=== PATIENT | male | born 1940 | race Caucasian/White ===

== ENCOUNTER 2024-12-15 09:27 | Outpatient (CLI) | payer MEDICARE, BC | END 2024-12-15 09:28 | disposition home or self-care (01) | LOC: MADRAD 09:27 | PROVIDERS: ATTEND Nurse Practitioner Primary Care | DX: M25.562 Pain in left knee (principal) ==

== ENCOUNTER 2024-12-28 07:59 | Outpatient (CLI) | payer MEDICARE ==
[2024-12-28 09:23] LABS: Anion Gap 16 mmol/L (10-20); BUN (Urea Nitrogen) 18 mg/dL (8.4-25.7); Calc. Creatinine Clearance 0 mL/min (70-130); Calcium 8.5 mg/dL (7.8-10.44); Carbon Dioxide 24 mmol/L (23-31); Chloride 108 mmol/L (98-107); Glucose 86 mg/dL (83-110); Potassium 4.8 mmol/L (3.5-5.1); Sodium 143 mmol/L (136-145)
[2024-12-28 09:29] LABS: #Basophils 0.1 thou/uL (0.0-0.2); #Eosinophils 0.1 thou/uL (0.0-0.7); #Lymphocytes 1.5 thou/uL (1.20-3.40); #Monocytes 0.7 thou/uL (0.11-0.59); #Neutrophils 4.2 thou/uL (1.40-6.50); %Basophils 0.8 % (0.0-1.0); %Eosinophils 1.6 % (0.0-10.0); %Lymphocytes 23.0 % (21.0-51.0); %Monocytes 10.8 % (0.0-10.0); %Neutrophils 63.8 % (42.0-75.0); Hematocrit 47.6 % (42.0-52.0); Hemoglobin 15.2 g/dL (14.0-18.0); Mean Corpuscular Hemoglobin 31.7 pg (27.0-31.0); Mean Corpuscular Volume 99.4 fl (78.0-98.0); Platelet Count 254 10x3/uL (130-400); Red Blood Cell (RBC) Count 4.79 mill/uL (4.70-6.10); White Blood Cell (WBC) Count 6.6 10x3/uL (4.8-10.8)
== END 2024-12-28 08:00 | disposition home or self-care (01) ==
LOC: MADLAB 07:59
PROVIDERS: ATTEND Nurse Practitioner Primary Care
DX: J44.9 Chronic obstructive pulmonary disease, unspecified (principal)
CPT/HCPCS: 80048; 84443; 85025